=== PATIENT | female | born 1985 | race Caucasian/White ===

== ENCOUNTER 2017-07-13 07:44 | Emergency (ER) | payer OTHER ==
[~2017-07-13] VITALS: Ht 165.1 cm; Wt 137.0 kg
[~2017-07-13 07:44] MED LIST: ENDOCET 5-3251 EACH PO; Motrin PO
[2017-07-13 07:50] VITALS: BP 150/90
[2017-07-13 08:34] LABS: HEMATOCRIT 37.8 % (36.0-46.0); HEMOGLOBIN 12.9 G/DL (11.9-15.5); MCH 29.9 PG (29.0-34.0); MCHC 34.1 G/DL (30.0-36.0); MCV 87.5 FL (83-99); NRBC (%) 0.4 /100 WBC (0-0); PLATELET COUNT 255 K/uL (156-360); RBC DIS.WIDTH-CV 13.2 % (11.8-14.6); RBC DIS.WIDTH-SD 41.7 % (39-53); RED BLOOD COUNT 4.32 M/uL (3.80-5.20); WHITE BLOOD COUNT 6.7 K/uL (4.1-10.2)
[2017-07-13 08:45] LABS: CHLORIDE 107 mEq/L (99-109); POTASSIUM 3.9 mEq/L (3.7-5.4); SODIUM 139 mEq/L (136-147)
[2017-07-13 08:47] LABS: GLUCOSE 114 mg/dL (70-99)
[2017-07-13 08:51] LABS: CREATININE 0.6 mg/dL (0.6-1.3); GFR ESTIMATE (CALCULATED) > 59 mL/min/
[2017-07-13 08:52] LABS: UREA NITROGEN (BUN) 14 mg/dL (9-23)
[2017-07-13 08:59] LABS: QUANTITATIVE HCG < 4.0 MIU/ML
[2017-07-13 09:47] LABS: C-REACTIVE PROTEIN 24.5 MG/L (0-10)
[2017-07-13 10:22] LABS: ERTH.SED.RATE 60 MM/HR (0-20)
[2017-07-13 12:43] LABS: LYME DISEASE SEROLOGY SCREEN NEGATIVE (NEGATIVE)
== END 2017-07-13 10:34 | disposition home or self-care (01) ==
LOC: EME 07:44
PROVIDERS: Nurse Practitioner Family
DX: R60.0 Localized edema (principal); F41.9 Anxiety disorder, unspecified; F42.9 Obsessive-compulsive disorder, unspecified
CPT/HCPCS: 80048; 84702; 85027; 85651; 86140; 86618; 99281; 99285